=== PATIENT | male | born 2000 | race Caucasian/White ===

== ENCOUNTER 2020-02-08 17:41 | Emergency (ER) | payer MEDICAID ==
[~2020-02-08] VITALS: Ht 180.3 cm; Wt 77.3 kg
[2020-02-08 18:30] VITALS: BP 132/62
--- NOTE | 2020-02-08 18:34 | NUR ---
Referral clinics a papper work given
== END 2020-02-08 18:25 | disposition home or self-care (01) ==
LOC: ER 17:42
DX: F29 Unspecified psychosis not due to a substance or known physiological condition (principal); F31.9 Bipolar disorder, unspecified; F20.9 Schizophrenia, unspecified
CPT/HCPCS: 99281